=== PATIENT | male | born 1955 | race Caucasian/White ===

== ENCOUNTER 2019-06-22 22:52 | Emergency (ER) | payer MEDICARE, BC | END 2019-06-23 03:18 | disposition home or self-care (01) | LOC: ED 22:52 ==

== ENCOUNTER 2019-07-28 07:16 | Day surgery (SDC) | payer MEDICARE ==
--- NOTE | 2019-07-26 14:06 | HP ---
DATE OF SURGERY: 07/28/2019 ANTICIPATED PROCEDURE: Cholecystectomy. HISTORY OF PRESENT ILLNESS: Patient has upper abdominal pain. Ultrasound positive. Seen and examined. Procedure discussed in detail and wished to proceed. PAST MEDICAL HISTORY: ALLERGIES: NONE. MEDICATIONS: Lisinopril, Zyloprim. PAST SURGICAL HISTORY: Back surgery. Shoulder surgery. Appendectomy. SOCIAL HISTORY: Negative. FAMILY HISTORY: Negative. PHYSICAL EXAMINATION: VITAL SIGNS: Normal. CHEST: Clear. COR: Regular. IMPRESSION: Symptomatic cholelithiasis. PLAN: Laparoscopic cholecystectomy.
[~2019-07-28 07:16] MED LIST: Lactated Ringers 1,000 ML IV ONE; Lactated Ringers 1,000 ML IV SCH; Sensorcaine 0.25% 10 ML ONE
[2019-07-28] MEDS ORDERED: MEFOXIN 2 GM PREMIX** 2 GM/50 ML ML IV ONE (07:26)
[2019-07-28] MEDS ORDERED: EMLA Cream 5 GM TP ONE (07:28)
[2019-07-28] MEDS ORDERED: Quelicin Fliptop 200 MG/10 ML ONE (07:53)
[2019-07-28] MEDS ORDERED: Zemuron 100 MG/10 ML ONE (07:53)
[2019-07-28] MEDS ORDERED: DIPRIVAN 200 MG/20 ML IV ONE (07:53)
[2019-07-28] MEDS ORDERED: SUBLIMAZE 100 MCG/2 ML ONE ×2 (07:53→10:37)
[2019-07-28] MEDS ORDERED: EMLA Cream 5 GM TP PRN (08:03)
[2019-07-28] MEDS ORDERED: Zofran 4 MG/2 ML VIAL ONE ×3 (10:02→13:59)
[2019-07-28] MEDS ORDERED: BRIDION 200MG/2ML IV ONE (10:02)
[2019-07-28] MEDS ORDERED: TORAdol 30 mg Injection ONE (10:02)
[2019-07-28] MEDS ORDERED: Decadron 4 MG INJ ONE (10:02)
[2019-07-28] MEDS ORDERED: DILAUDID 2 MG INJECTION ONE (10:15)
[2019-07-28] MEDS ORDERED: Lactated Ringers 1,000 ML IV ONE (13:30)
[2019-07-28] MEDS ORDERED: Zofran 4 MG/2 ML VIAL IV PRN (14:02)
[2019-07-28 14:11] VITALS: O2SAT 93
--- NOTE | 2019-07-28 14:25 | OP ---
SURGERY DATE/TIME: 07/28/2019929 PREOPERATIVE DIAGNOSIS: Symptomatic cholelithiasis. POSTOPERATIVE DIAGNOSIS: Symptomatic cholelithiasis. PROCEDURE: Laparoscopic cholecystectomy. SURGEON: Dr. Sanchez. ANESTHESIA: General endotracheal tube by Hang Serrano CRNA. COMPLICATIONS: None. CONDITION: Stable. INDICATIONS: A patient with upper abdominal pain, ultrasound positive, seen and examined. Procedure discussed in detail. He had appendectomy through right transverse quite some while ago. DESCRIPTION OF PROCEDURE AND FINDINGS: Taken to surgery, general anesthetic, routine prep and drape. Time out performed. Veress needle inserted right upper quadrant. Good stick. Insufflating pressure 14. A 5 port in the right upper corner of the umbilicus. Good visualization. Veress needle no issue. Three additional side ports. Gallbladder dissected. It was quite full. Cystic duct defined. Cystic artery defined. Both structures triply clipped and transected. Clips noted across and well approximated. Gallbladder rolled out of gallbladder fossa. The gallbladder delivered through upper abdominal port widened slightly. It was about a size 8. Hole closure steel cone could not go in. It was free hand sutured with the hole closure needle with 0 Vicryl. Good approximation and hemostasis. Field totally dry. CO2 was exsufflated. Skin closed with 4-0 Vicryl and Steri-Strips. The patient tolerated the procedure satisfactorily.
[2019-07-28] MEDS ORDERED: MORPHINE SULFATE 2 MG INJ IV PRN (14:45)
[2019-07-28 14:46] VITALS: BP 108/65; PULSE 61
[2019-07-28] MEDS ORDERED: MORPHINE SULFATE 4 MG INJ IV PRN (14:46)
[2019-07-28] MEDS ORDERED: NORCO 5/325 MG PO PRN (14:49)
== END 2019-07-28 15:10 | disposition home or self-care (01) ==
LOC: SDC 07:16
PROVIDERS: ATTEND Surgery
DX: K80.20 Calculus of gallbladder without cholecystitis without obstruction (principal)
CPT/HCPCS: 88304; J0330; J0694; J1100; J1170; J1885; J2405; J2704; J3010; A9270-GY